=== PATIENT | female | born 1965 | race Two or more races ===

== ENCOUNTER → 2019-07-14 | Day surgery (SDC) | payer OTHER ==
[~2019-07-14] VITALS: Ht 160 cm; Wt 69.8 kg
[2019-07-14 10:09] VITALS: BP 120/72
[2019-07-14 15:04] VITALS: BP 136/73
== END | disposition home or self-care (01) ==
LOC: GI 06-23 09:30 → OR 06-23 10:30 → GI 09:08
DX: K59.00 Constipation, unspecified (principal); K21.9 Gastro-esophageal reflux disease without esophagitis; K25.9 Gastric ulcer, unspecified as acute or chronic, without hemorrhage or perforation; K29.50 Unspecified chronic gastritis without bleeding; K29.80 Duodenitis without bleeding; I20.9 Angina pectoris, unspecified; J45.909 Unspecified asthma, uncomplicated; M16.11 Unilateral primary osteoarthritis, right hip; G47.00 Insomnia, unspecified; F32.9 Major depressive disorder, single episode, unspecified; Z79.82 Long term (current) use of aspirin; Z79.899 Other long term (current) drug therapy; Z98.891 History of uterine scar from previous surgery; Z98.890 Other specified postprocedural states
CPT/HCPCS: 43235; J1200; J1610; J2250; J2310; J3010; J3490